=== PATIENT | male | born 1960 | race Caucasian/White ===

== ENCOUNTER 2021-10-25 13:08 | Outpatient (CLI) | payer BC, SELFPAY ==
--- NOTE | 2021-10-25 13:17 | MRI_ITS ---
STUDY: MRI ORBITS WITHOUT CONTRAST REASON FOR EXAM: Male, 61 years old. ORBITS,,,ENLARGED LT LACRIMAL GLAND/ORBITAL MASS, swelling left eye TECHNIQUE: Standardized multiplanar fat and water weighted pulse sequences were obtained. COMPARISON: None. FINDINGS: Normal bilateral globes. Normal bilateral optic nerve sheath complexes and optic nerves. Normal bilateral intraconal and extraconal spaces. Normal bilateral extraocular muscles. 0.8 x 2.8 cm T1 and T2 isointense mass of the left lacrimal gland worrisome for tumor. Mild displacement of the left lobe medially. Normal optic chiasm and post-chiasmatic tracts. Normal sella turcica, pituitary gland, infundibular stalk, and hypothalamus. Normal bilateral cavernous sinuses. Normal tectal plate and pineal gland. Normal flow voids within the major intracranial circulation suggesting patency by spin echo criteria. There is moderate cerebral atrophy with widening of the extra-axial spaces and ventricular dilatation. There are a limited number of small white matter hyperintensities, distributed throughout the deep white matter tracts of the cerebral hemispheres, consistent with mild chronic white matter ischemic changes. Normal bilateral basal ganglia. Chronic lacunar infarct in the right thalamus. There is no extra-axial fluid accumulation. Normal midbrain, gary and medulla. Normal cerebellum. Normal basal cisterns. 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 Electronically Signed: Indio Donald MD at 17:21 EST Tel , Service support ,
== END 2021-10-25 23:59 | disposition short-term general hospital (02) ==
PROVIDERS: PCP Student in an Organized Health Care Education/Training Program; Visit Provider Ophthalmology
DX: H05.89 Other disorders of orbit (principal); H04.03 Chronic enlargement of lacrimal gland
CPT/HCPCS: 70540

== ENCOUNTER 2024-02-09 11:34 | Emergency (ER) | payer OTHER, SELFPAY ==
[2024-02-09] VITALS (7 sets, daily range): BP systolic 124–151; BP diastolic 87–134; PULSE 59–86; RESP 15–18; TEMP 36.7; O2SAT 92–100
[2024-02-09 12:15] LABS: Mucous, Urine 0 SEEN /hpf (<or=2+); Red Blood Cells-Urine 0 SEEN /hpf (0-5)
--- NOTE | 2024-02-09 12:21 | CT_ITS ---
INDICATION: EPIGASTRIC PAIN EXAMINATION: CT ABDOMEN AND PELVIS WITHOUT CONTRAST - CT Abdomen And Pelvis W/O Contrast Injection TECHNIQUE: Helically acquired images were obtained of the abdomen and pelvis without oral or IV contrast. A radiation dose optimization technique was used for this scan. IV Contrast dosage and agent: None. Oral contrast: None. RADIATION DOSAGE (If Supplied By Facility): CTDIvol = ( 8.83 ) mGy, DLP = ( 465.64 ) mGycm COMPARISON: No relevant prior comparison study available FINDINGS: LOWER CHEST: Lung bases are clear. No cardiomegaly or pericardial effusion. The lack of intravenous contrast limits evaluation of solid visceral organs. LIVER: Homogeneous. No focal mass. GALLBLADDER AND BILIARY TREE: No calcified gallstones. No gallbladder distension or wall edema. No intra- or extrahepatic biliary ductal dilation. PANCREAS: No focal cystic or solid mass. SPLEEN: There are splenic granulomas. ADRENAL GLANDS: No nodules. KIDNEYS AND URETERS: Normal renal size and position. There are right renal cysts. No hydronephrosis. PERITONEUM: No ascites or free air. No other fluid collection. BOWEL: There is a small hiatal hernia. No evidence of acute appendicitis. No stomach or bowel distension. There are diverticula arising from the colon. No focal inflammatory change. LYMPH NODES: No enlarged mesenteric or retroperitoneal lymph nodes. VESSELS: Aorta is non-dilated. There are peripheral calcifications of the abdominal aorta consistent with atherosclerosis. URINARY BLADDER: Unremarkable. REPRODUCTIVE ORGANS: No pelvic masses. ABDOMINAL WALL: No discrete abdominal or pelvic wall hernia. BONES: No lytic or blastic abnormality. CT/Abdomen/Pelvis without Cont IMPRESSION: Hiatal hernia. Colonic diverticulosis. Atherosclerosis. Evidence of prior granulomatous disease. Electronically Signed: Jaylene Castro MD at 13:11 EDT ,
[2024-02-09 12:26] LABS: Absolute Neutrophil Count 8.4 X10^3/uL (2.0-7.7); Basophil# 0.07 X10^3/uL; Basophil% 0.5 % (0-1); Eosinophil# 0.22 X10^3/uL; Eosinophils% 1.7 % (0-5); Hematocrit 45.6 % (40-54); Lymphocyte % 24.1 % (19-41); Mean Corp Hgb Conc 32.9 g/dL (32-36); Mean Corpuscular Hgb 29.5 pg (27.0-32.0); Mean Corpuscular Volume 89.8 fL (80-94); Mean Platelet Vol. 8.9 fl (6.2-12.0); Monocyte# 1.08 X10^3/uL; Monocyte% 8.4 % (0-10); NRBC Flagged by Analyzer 0 % (0-5); Neutrophil # 8.37 X10^3/uL (2.7-7.7); Platelet Count 426 K/mm3 (150-450); RBC Distribution Width CV 13.9 % (11.6-14.6); RBC Distribution Width SD 45.9 fl (35.1-43.9); Red Blood Count 5.08 M/mm3 (4.6-6.2); White Blood Count 12.9 K/mm3 (4.4-11.0)
[2024-02-09 12:27] LABS: Color, Urine Yellow (Yellow); Glucose, Dipstick Normal (Normal); Ketone-Dipstick Negative (Negative); Leukocyte Esterase-Dipstick 500 /ul (Negative); Nitrite-Dipstick Negative (Negative); Occult Blood-Urine Negative /ul (Negative); Protein-Dipstick 30 mg/dl (Negative); Urine Bilirubin Dipstick Negative (Negative); Urine Clarity Clear (Clear); Urine Urobilinogen Normal (Normal)
--- NOTE | 2024-02-09 12:30 | ED.VIS.GI ---
HPI HPI - GI History of Present Illness Chief Complaint: Abd Pain Narrative Narrative: 64-year-old male presenting with epigastric pain. Patient states is present in the morning every day for the last week. He states that it last all morning and sometimes in the afternoon. It hurts worse if he eats. He has not been eating very much. He is not nauseous or vomiting. Denies diarrhea or constipation. He has not had a fever at home. He states he does have a history of GERD but that is all he can remember. I did ask him about his diet this week and the only thing he can recall is eating cupcakes this morning. [facility] Medical History Cervical disc disease Panic attack Home Medications diphenhydramine-zinc acetate 1 %-0.1 % topical cream (Anti-Itch (diphenhydramine) with Zinc) 1 applic topical BID 09/27/21 [History Last Taken Unknown] omeprazole 20 mg capsule,delayed release 20 mg PO PRN PRN Stomach Upset 09/27/21 [History Last Taken Unknown] risperidone 0.5 mg tablet 0.5 mg PO DAILY 11/29/21 [History Last Taken Unknown] risperidone 1 mg tablet 1 mg PO QHS 11/29/21 [History Last Taken Unknown] rosuvastatin 10 mg tablet 10 mg PO DAILY 11/29/21 [History Last Taken Unknown] vitamin B complex 100 2-herbs 100 mg PO/SL DAILY 12/13/21 [History Last Taken Unknown] omeprazole 40 mg capsule,delayed release 40 mg PO DAILY #30 caps 02/09/24 [Rx Last Taken Unknown] Allergy/AdvReac Type Severity Reaction Status Date / Time Iodinated Contrast Media AdvReac Severe Chest Verified 02/09/24 11:38 [contrast dye - iodinated] tightness Family History Father Cancer Diabetes Heart disease Mother Dementia Social History Smoking Status: Former smoker how long ago did patient quit smokin09/18/21 started patches ROS ROS ED Constitutional Constitutional ED: Denies chills, fever(s) or sweats Eyes Eyes: Denies blurry vision or change in vision ENT ENT ED: Denies ear pain or sore throat Cardiovascular Cardiovascular: Denies chest pain, palpitations or racing heartbeat Respiratory/Chest Respiratory/Chest: Denies cough, dyspnea or sputum Gastrointestinal Gastrointestinal: Reports abdominal pain; Denies constipation, diarrhea, nausea or vomiting Genitourinary Genitourinary ED: Denies dysuria, hematuria or urinary frequency Musculoskeletal Musculoskeletal: Denies arthralgias, myalgias or neck pain Integumentary Denies abscess, Abrasions or rash Neurologic Neurologic: Denies headache(s), paresthesias or weakness Psychiatric Psychiatric: Denies anxiety, depression, suicidal ideation or suicidal thoughts Endocrine Endocrinology: Denies polydipsia or polyuria EXAM Physical Exam Const Vital Signs: 02/09/24 11:34 02/09/24 11:37 02/09/24 12:37 Temperature 98.1 F 98.1 F 98.0 F Temperature Source Temporal Temporal Temporal Pulse Rate 86 84 65 Respiratory Rate 15 16 18 Blood Pressure 146/134 H 148/92 H 138/94 H Blood Pressure Mean 138 110 108 Pulse Ox 96 96 100 Oxygen Delivery Method Room Air Room Air Room Air 02/09/24 13:00 02/09/24 13:50 02/09/24 13:50 Temperature 98.0 F 98.0 F Temperature Source Temporal Temporal Pulse Rate 65 62 61 Respiratory Rate 18 18 Blood Pressure 140/94 H 146/93 H Blood Pressure Mean 109 110 Pulse Ox 100 92 Oxygen Delivery Method Room Air 02/09/24 14:51 02/09/24 14:51 Temperature 98.0 F Temperature Source Temporal Pulse Rate 59 L 59 L Respiratory Rate 18 Blood Pressure 124/87 H Blood Pressure Mean 99 Pulse Ox 98 Oxygen Delivery Method Room Air Positive well nourished General Appearance ED: NAD; Negative for pallor HEENT Reports moist mucous membranes normocephalic and atraumatic Eyes PERRL Resp normal respiratory effort and clear to auscultation bilaterally Auscultation: Negative for rales or rhonchi Cardio regular rate and regular rhythm GI non-tender, non-distended and no masses Palpation: soft Neuro CN's II-XII intact bilaterally Sensorium / Orientation: alert Motor Exam: strength 5/5 throughout Psych mental status grossly normal and thought process normal Skin General Skin Exam: Negative for jaundice or pallor MDM MDM MDM Narrative Medical decision making narrative: Patient planing of abdominal pain which been ongoing for a week. States it is worse in the morning but does last in the early afternoon as well. No fevers, chills, nausea vomiting diarrhea currently not in any pain. He states he only ate today was complaints. Patient presenting with right flank pain. Differential includes colitis, diverticulitis, gastritis, pancreatitis, acute cholecystitis, constipation, appendicitis, UTI, pyelonephritis, calculi, ureteral calculi, obstruction, malignancy, dehydration, electrolyte abnormalities. CBC will be obtained to assess white blood cell count, platelets. CMP to assess liver function, renal function, electrolytes. Lipase to assess for pancreatitis. Will obtain CT of the abdomen pelvis with out contrast due to patient's allergy. CBC shows white blood cell count of 12.9. Hemoglobin 15.0. Platelets 426. Creatinine slightly elevated today at 1.56. Patient was given IV fluids. Electrolytes are normal. LFTs are normal. Lipase normal. Urinalysis contaminated but inconsistent with infection. CT of the abdomen pelvis with IV contrast shows a hiatal hernia. Patient did request something for pain and was given morphine and Zofran. He was also given a GI cocktail. I suspect that given his epigastric pain that his pain is from the hiatal hernia. I will increase the patient's Prilosec to 40 mg. I recommended bland diet. Return precautions discussed. Impression: 1. Epigastric pain 2. Hiatal hernia Lab Data Attestation: I reviewed the patient's lab results. Labs: Laboratory Results - last 24 hr 02/09/24 12:07 WBC 12.9 H RBC 5.08 Hgb 15.0 Hct 45.6 MCV 89.8 MCH 29.5 MCHC 32.9 RDW Std Deviation 45.9 H RDW Coeff of Vita 13.9 Plt Count 426 MPV 8.9 Immature Gran % (Auto) 0.300 Neut % (Auto) 65.0 Lymph % (Auto) 24.1 Barry % (Auto) 8.4 Eos % (Auto) 1.7 Baso % (Auto) 0.5 Absolute Neuts (auto) 8.4 H Absolute Lymphs (auto) 3.10 Nucleated RBC % 0 Sodium 140 Potassium 3.9 Chloride 108 H Carbon Dioxide 22.0 Anion Gap 10 BUN 24 H Creatinine 1.56 H Est GFR (MDRD) Af Amer 58 L Est GFR (MDRD) Non-Af 48 L BUN/Creatinine Ratio 15.4 Glucose 113 H Calcium 9.6 Total Bilirubin 0.70 AST 17 ALT 18 Alkaline Phosphatase 128 H Total Protein 8.2 Albumin 3.7 Globulin 4.5 H Albumin/Globulin Ratio 0.8 L Lipase 54 Urine Color Yellow Urine Clarity Clear Urine pH 5.0 Ur Specific [place] 1.020 Urine Protein 30 H Urine Glucose (UA) Normal Urine Ketones Negative Urine Occult Blood Negative Urine Nitrite Negative Urine Bilirubin Negative Urine Urobilinogen Normal Ur Leukocyte Esterase 500 H Urine RBC 0 SEEN Urine WBC 10-25 SEEN Ur Squamous Epith Cells 5-10 SEEN Urine Bacteria 1+ Urine Mucus 0 SEEN Radiography Diagnostic Testing: Clinical Impression(s) from Imaging Studies Abdomen/Pelvis CT 02/09/24 12:21 IMPRESSION: Hiatal hernia. Colonic diverticulosis. Atherosclerosis. Evidence of prior granulomatous disease. Electronically Signed: Jaylene Castro MD at 13:11 EDT Reading Location ID and State: [facility] / [place] Tel , Service support , Discharge Plan Triage Chief Complaint: Abd Pain ED Provider: Sudheer Ca Dx/Rx/DC Orders Instructions: ED Epigastric Pain Uncertain Cause, ED Hiatal Hernia Prescriptions: New omeprazole 40 mg capsule,delayed release(DR/EC) 40 mg PO DAILY Qty: 30 0RF No Action Anti-Itch(diphenhyd) with Zinc 1-0.1 % cream 1 applic topical BID omeprazole 20 mg capsule,delayed release(DR/EC) 20 mg PO PRN PRN (Reason: Stomach Upset) risperidone 1 mg tablet 1 mg PO QHS risperidone 0.5 mg tablet 0.5 mg PO DAILY rosuvastatin 10 mg Tablet 10 mg PO DAILY vitamin B complex 100 2-herbs 100 mg 100 mg PO/SL DAILY Primary Care Provider: Lul Wallace Referrals: Lul Wallace DO [Primary Care Provider] - Disposition Disposition: Home, Self Care
[2024-02-09 12:33] LABS: ALB/GLOB Ratio 0.8 RATIO (0.9-2.4); AST(SGOT) 17 U/L (15-37); Alanine Aminotransfer ALT/SGPT 18 U/L (16-61); Albumin, Serum 3.7 g/dL (3.2-5.0); Alkaline Phosphatase 128 U/L (45-117); Anion Gap 10 (5-15); BUN 24 mg/dL (7-18); BUN/Creat Ratio 15.4 RATIO (10-20); Calcium,Total 9.6 mg/dL (8.5-10.1); Chloride 108 mmol/L (98-107); Creatinine, Serum 1.56 mg/dL (0.70-1.30); EST Glomerular Filtration Rate 48 mL/min (>60); Est Glom Filt Rate - Afr Amer 58 mL/min (>60); Globulin 4.5 g/dL (2.2-4.2); Glucose 113 mg/dL (74-106); Lipase 54 U/L (13-75); Potassium 3.9 mmol/L (3.5-5.1); Protein, Total 8.2 g/dL (6.4-8.2); Sodium Level 140 mmol/L (136-145)
[2024-02-09 12:36] LABS: Bacteria 1+ /hpf (None Seen); Squamous Epithelial Cells - UA 5-10 SEEN /hpf (0-5); White Blood Cells 10-25 SEEN /hpf (0-5)
[2024-02-09] MEDS: 0.9% Normal Saline (1000mL) 1,000 ML 999 ML IV (12:41)
[2024-02-09] MEDS: Morphine 4 MG/ML Syringe IV (13:49)
[2024-02-09] MEDS: Ondansetron 4 MG/2 ML Vial IV (13:49)
[2024-02-09] MEDS: Mag Hydrox/Al Hydrox/Simeth 30 ML UDC PO (16:06)
== END 2024-02-09 16:15 | disposition home or self-care (01) ==
PROVIDERS: Emergency Provider Student in an Organized Health Care Education/Training Program; PCP Student in an Organized Health Care Education/Training Program; Visit Provider Student in an Organized Health Care Education/Training Program
DX: R10.13 Epigastric pain (principal); K44.9 Diaphragmatic hernia without obstruction or gangrene; Z87.891 Personal history of nicotine dependence
CPT/HCPCS: 74176; 80053; 81001; 83690; 85025; 96361; 96374; 96375; 99283; A4216; J2405